=== PATIENT | male | born 1945 | race Caucasian/White ===

== ENCOUNTER 2022-01-27 13:33 | Inpatient (IN) ==
[2022-01-27] MEDS ORDERED: Isovue-370 500 ML BOTTLE IVP ONE (13:38)
[2022-01-27 13:54] LABS: Hematocrit 36.3 % (37.5-50.1); Hemoglobin 11.9 g/dL (12.9-16.9); Mean Corpuscular HGB Conc 32.8 g/dL (31.6-35.5); Mean Corpuscular Hemoglobin 29.2 pg (28.0-33.3); Mean Platelet Volume 9.8 fL (9.4-12.4); Platelet Count 276 K/mcL (140-400); Red Blood Count 4.08 M/mcL (4.19-5.50); Red Cell Distribution Width 15.5 % (11.5-14.5); White Blood Count 8.1 K/mcL (4.3-11.1)
[2022-01-27 14:02] LABS: INR 1.2; Prothrombin Time 13.4 Seconds (9.4-12.1)
[2022-01-27 14:13] LABS: BUN/Creatinine Ratio 19 (6-26); Blood Urea Nitrogen 30 mg/dL (8-23); Calcium 9.2 mg/dL (8.6-10.3); Carbon Dioxide 21 mEq/L (23-29); Chloride 101 mEq/L (98-107); Glucose 100 mg/dL (70-105); Osmolality,Calculated 290 (280-300); Potassium 4.4 mEq/L (3.5-5.1); Sodium 137 mEq/L (136-145); eGFR For African Americans 53 (> 60); eGFR For Non-African Americans 43 (> 60)
[2022-01-27 14:14] LABS: Troponin I < 0.03 ng/mL (< 0.04)
[2022-01-27] MEDS ORDERED: Aspirin 325 MG TABLET PO ONE (15:14)
[2022-01-27] MEDS ORDERED: 0.9 % Sodium Chloride 1,000 ML IVC ONE (15:14)
[2022-01-27 15:56] LABS: Creatine Kinase 121 Units/L (30-223)
[2022-01-27] MEDS ORDERED: Ondansetron 4 MG/2 ML VIAL IVP PRN (16:01)
[2022-01-27] MEDS ORDERED: Naloxone 0.4 MG/ML INJ IVP PRN (16:01)
[2022-01-27 16:02] LABS: Bilirubin,Urine Negative (Negative); Blood,Urine Negative (Negative); Clarity,Urine Clear (Clear); Color,Urine Light-Yellow (Yellow); Glucose,Urine (UA) Normal (Normal); Ketones,Urine Negative (Negative); Leukocyte Esterase,Urine Negative (Negative); Nitrite,Urine Negative (Negative); Protein,Urine Negative (Neg-Trace); Specific Gravity,Urine > 1.030 (1.010-1.025); Urobilinogen,Urine Normal (Normal)
[2022-01-27] MEDS ORDERED: Ringers Solution, Lactated 1,000 ML IVC SCH (16:30)
[2022-01-27] MEDS ORDERED: Perflutren Lipid Microsphere 1.3 ML in 0.9 % Sodium Chloride 8.7 ML IVP PRN (18:24)
[2022-01-27] MEDS ORDERED: Dextrose 4 GM Chewable Tablets PO PRN ×2 (20:55)
[2022-01-27] MEDS ORDERED: D5% in Water 1,000 ML IVC PRN (20:55)
[2022-01-27] MEDS ORDERED: *HR* Dextrose 50 % in Water (Syg) 50 ML SYRINGE IVP PRN (20:55)
[2022-01-27] MEDS: Budesonide/Formoterol 160/4.5 1 PUFF INH IH SCH (21:02)
[2022-01-27] MEDS: cilostazoL 100 MG TABLET PO SCH (21:23)
[2022-01-27] MEDS: Divalproex (12 HR) 500 MG TABLET PO SCH (21:23)
[2022-01-28 04:58] LABS: Basophils % 0.6 %; Eosinophils # 0.2 K/mcL (0.0-0.6); Eosinophils % 2.2 %; Hematocrit 31.3 % (37.5-50.1); Immature Granulocytes % 0.4 % (0-4); Lymphocytes # 1.9 K/mcL (0.6-4.6); Lymphocytes % 27.7 %; Mean Corpuscular HGB Conc 32.6 g/dL (31.6-35.5); Mean Corpuscular Hemoglobin 28.7 pg (28.0-33.3); Mean Corpuscular Volume 87.9 fL (83.0-100.0); Mean Platelet Volume 10.4 fL (9.4-12.4); Monocytes # 0.8 K/mcL (0.0-1.3); Neutrophils # 3.8 K/mcL (1.6-8.9); Platelet Count 219 K/mcL (140-400); Red Blood Count 3.56 M/mcL (4.19-5.50); Red Cell Distribution Width 15.2 % (11.5-14.5); Segmented Neutrophils % 57.1 %; White Blood Count 6.7 K/mcL (4.3-11.1)
[2022-01-28 05:00] LABS: Hemoglobin 10.2 g/dL (12.9-16.9)
[2022-01-28 05:05] LABS: INR 1.2; Prothrombin Time 13.3 Seconds (9.4-12.1)
[2022-01-28 05:19] LABS: Alanine Aminotransferase 4 Units/L (7-52); Albumin/Globulin Ratio 1.2 (1.1-2.2); Alkaline Phosphatase 50 Units/L (34-104); Aspartate Amino Transferase 11 Units/L (13-39); BUN/Creatinine Ratio 18 (6-26); Bilirubin,Total 0.3 mg/dL (0.3-1.0); Blood Urea Nitrogen 20 mg/dL (8-23); Carbon Dioxide 22 mEq/L (23-29); Chloride 107 mEq/L (98-107); Chol/HDL Ratio 3.2 (0-4.9); Cholesterol 94 mg/dL (< 200); Globulin 2.5 g/dL (2.4-3.5); Glucose 93 mg/dL (70-105); HDL Cholesterol 29 mg/dL (40-59); LDL Cholesterol,Calculated 49 mg/dL (< 100); Osmolality,Calculated 280 (280-300); Potassium 3.9 mEq/L (3.5-5.1); Sodium 134 mEq/L (136-145); Total Protein 5.5 g/dL (6.4-8.9); Triglycerides 80 mg/dL (< 150); eGFR For African Americans > 60 (> 60); eGFR For Non-African Americans > 60 (> 60)
[2022-01-28] MEDS: Tiotropium 10 INH DOSE IH SCH (08:09)
[2022-01-28] MEDS: Budesonide/Formoterol 160/4.5 1 PUFF INH IH SCH ×2 (08:09→19:41)
[2022-01-28] MEDS: cilostazoL 100 MG TABLET PO SCH ×2 (09:12→20:04)
[2022-01-28] MEDS: Divalproex (12 HR) 500 MG TABLET PO SCH ×2 (09:13→20:04)
[2022-01-28] MEDS: Aspirin 81 MG TAB.CHEW PO SCH (09:13)
[2022-01-28] MEDS: Metoprolol XL (24 HR) Succ 50 MG TAB.ER.24H PO SCH (09:13)
[2022-01-28 09:14] LABS: Estimated Average Glucose 105 mg/dl; Hemoglobin A1C 5.3 %
[2022-01-28] MEDS ORDERED: Isovue-370 500 ML BOTTLE IVP ONE (12:07)
[2022-01-29 03:16] LABS: Basophils % 0.7 %; Eosinophils # 0.2 K/mcL (0.0-0.6); Eosinophils % 3.4 %; Hematocrit 30.9 % (37.5-50.1); Hemoglobin 10.1 g/dL (12.9-16.9); Lymphocytes # 1.7 K/mcL (0.6-4.6); Lymphocytes % 29.2 %; Mean Corpuscular HGB Conc 32.7 g/dL (31.6-35.5); Mean Corpuscular Hemoglobin 28.6 pg (28.0-33.3); Mean Corpuscular Volume 87.5 fL (83.0-100.0); Mean Platelet Volume 10.2 fL (9.4-12.4); Monocytes # 0.6 K/mcL (0.0-1.3); Monocytes % 10.6 %; Neutrophils # 3.2 K/mcL (1.6-8.9); Platelet Count 225 K/mcL (140-400); Red Blood Count 3.53 M/mcL (4.19-5.50); Red Cell Distribution Width 15.2 % (11.5-14.5); Segmented Neutrophils % 55.1 %; White Blood Count 5.9 K/mcL (4.3-11.1)
[2022-01-29 03:36] LABS: BUN/Creatinine Ratio 14 (6-26); Blood Urea Nitrogen 14 mg/dL (8-23); Calcium 8.1 mg/dL (8.6-10.3); Carbon Dioxide 21 mEq/L (23-29); Chloride 108 mEq/L (98-107); Glucose 94 mg/dL (70-105); Magnesium 1.6 mg/dL (1.6-2.6); Osmolality,Calculated 282 (280-300); Phosphorous 2.2 mg/dL (2.7-4.5); Potassium 3.8 mEq/L (3.5-5.1); Sodium 136 mEq/L (136-145); eGFR For African Americans > 60 (> 60); eGFR For Non-African Americans > 60 (> 60)
[2022-01-29 07:14] VITALS: BP 137/75; PULSE 99; TEMP 98.2; O2SAT 96
[2022-01-29] MEDS: Tiotropium 10 INH DOSE IH SCH (07:42)
[2022-01-29] MEDS: Budesonide/Formoterol 160/4.5 1 PUFF INH IH SCH (07:42)
[2022-01-29] MEDS: Metoprolol XL (24 HR) Succ 50 MG TAB.ER.24H PO SCH (09:50)
[2022-01-29] MEDS: Divalproex (12 HR) 500 MG TABLET PO SCH (09:50)
[2022-01-29] MEDS: cilostazoL 100 MG TABLET PO SCH (09:50)
[2022-01-29] MEDS: Aspirin 81 MG TAB.CHEW PO SCH (09:50)
== END 2022-01-29 11:22 | disposition home health service (06) | DRG 65 ==
LOC: EMEROOARM 13:33 → 3BNU 13:33 → SUATTDRO 15:21 → 3BNU 16:10
PROVIDERS: ADMIT Student in an Organized Health Care Education/Training Program; ATTEND Internal Medicine

== ENCOUNTER 2022-02-21 08:03 | Inpatient (IN) ==
[2022-02-21] MEDS ORDERED: Isovue-370 500 ML BOTTLE IVP ONE (08:04)
[2022-02-21 08:34] LABS: Hematocrit 32.5 % (37.5-50.1); Hemoglobin 10.3 g/dL (12.9-16.9); Mean Corpuscular HGB Conc 31.7 g/dL (31.6-35.5); Mean Corpuscular Hemoglobin 28.5 pg (28.0-33.3); Mean Platelet Volume 9.8 fL (9.4-12.4); Platelet Count 208 K/mcL (140-400); Red Blood Count 3.61 M/mcL (4.19-5.50); White Blood Count 6.8 K/mcL (4.3-11.1)
[2022-02-21 08:41] LABS: INR 1.1; Prothrombin Time 12.4 Seconds (9.4-12.1)
[2022-02-21 08:49] LABS: BUN/Creatinine Ratio 13 (6-26); Blood Urea Nitrogen 42 mg/dL (8-23); Calcium 8.1 mg/dL (8.6-10.3); Carbon Dioxide 22 mEq/L (23-29); Chloride 105 mEq/L (98-107); Glucose 115 mg/dL (70-105); Osmolality,Calculated 291 (280-300); Potassium 4.3 mEq/L (3.5-5.1); Sodium 135 mEq/L (136-145); Troponin I < 0.03 ng/mL (< 0.04); eGFR For African Americans 23 (> 60); eGFR For Non-African Americans 19 (> 60)
[2022-02-21] MEDS ORDERED: Aspirin 325 MG TABLET PO ONE (09:01)
[2022-02-21] MEDS ORDERED: Naloxone 0.4 MG/ML INJ IVP PRN (09:37)
[2022-02-21] MEDS ORDERED: Ringers Solution, Lactated 1,000 ML IVC ONE (10:11)
[2022-02-21] MEDS ORDERED: Gabapentin 100 MG CAPSULE PO PRN (10:13)
[2022-02-21] MEDS: Baclofen 10 MG TABLET PO SCH ×2 (15:25→21:19)
[2022-02-21 20:53] LABS: Calcium 8.9 mg/dL (8.6-10.3); Potassium 4.1 mEq/L (3.5-5.1)
[2022-02-21] MEDS: Budesonide/Formoterol 80/4.5 1 PUFF INH IH SCH (21:06)
[2022-02-21] MEDS: Divalproex (12 HR) 500 MG TABLET PO SCH (21:19)
[2022-02-21] MEDS: Mirtazapine 15 MG TABLET PO SCH (21:19)
[2022-02-21] MEDS: cilostazoL 100 MG TABLET PO SCH (21:20)
[2022-02-21 22:56] LABS: Bilirubin,Urine Negative (Negative); Blood,Urine Trace (Negative); Clarity,Urine Turbid (Clear); Color,Urine Yellow (Yellow); Glucose,Urine (UA) Normal (Normal); Ketones,Urine Negative (Negative); Leukocyte Esterase,Urine Large (Negative); Mucus,Urine Few per lpf (None-Few); Nitrite,Urine Negative (Negative); Protein,Urine 30 mg/dL (Neg-Trace); RBC,Urine 15-30 per hpf (0-3); Specific Gravity,Urine > 1.030 (1.010-1.025); Urobilinogen,Urine Normal (Normal); WBC,Urine TNTC per hpf (0-3)
[2022-02-22] MEDS ORDERED: *HR* Metoprolol 5 MG/5 ML VIAL IVP ONE ×2 (02:23→09:33)
[2022-02-22 06:00] LABS: Basophils # 0.1 K/mcL (0.0-0.2); Basophils % 1.1 %; Eosinophils # 0.5 K/mcL (0.0-0.6); Eosinophils % 7.9 %; Hematocrit 35.7 % (37.5-50.1); Immature Granulocytes % 0.5 % (0-4); Lymphocytes # 1.8 K/mcL (0.6-4.6); Mean Corpuscular HGB Conc 33.9 g/dL (31.6-35.5); Mean Corpuscular Hemoglobin 29.7 pg (28.0-33.3); Mean Corpuscular Volume 87.7 fL (83.0-100.0); Monocytes # 0.6 K/mcL (0.0-1.3); Monocytes % 9.4 %; Neutrophils # 3.3 K/mcL (1.6-8.9); Platelet Count 218 K/mcL (140-400); Red Blood Count 4.07 M/mcL (4.19-5.50); Segmented Neutrophils % 52.1 %; White Blood Count 6.3 K/mcL (4.3-11.1)
[2022-02-22 06:11] LABS: Hemoglobin 12.1 g/dL (12.9-16.9)
[2022-02-22 06:53] LABS: Albumin 3.5 g/dL (3.5-5.7); Albumin/Globulin Ratio 1.2 (1.1-2.2); Bilirubin,Total 0.4 mg/dL (0.3-1.0); Calcium 9.1 mg/dL (8.6-10.3); Total Protein 6.5 g/dL (6.4-8.9)
[2022-02-22] MEDS: cefTRIAXone 1,000 MG in 0.9 % Sodium Chloride 10 ML IVP SCH (09:52)
[2022-02-22] MEDS: Ringers Solution, Lactated 1,000 ML IVC SCH ×2 (09:53→20:09)
[2022-02-22] MEDS: Metoprolol XL (24 HR) Succ 50 MG TAB.ER.24H PO SCH ×2 (10:02→12:10)
[2022-02-22] MEDS: Budesonide/Formoterol 80/4.5 1 PUFF INH IH SCH ×2 (11:31→19:51)
[2022-02-22] MEDS: Tiotropium 10 INH DOSE IH SCH (11:32)
[2022-02-22] MEDS: cilostazoL 100 MG TABLET PO SCH ×2 (12:08→20:11)
[2022-02-22] MEDS: Azithromycin 250 MG TABLET PO SCH (12:08)
[2022-02-22] MEDS: Aspirin Enteric Coated 81 MG Tablet PO SCH (12:08)
[2022-02-22] MEDS: Baclofen 10 MG TABLET PO SCH ×3 (12:10→20:11)
[2022-02-22] MEDS: Divalproex (12 HR) 500 MG TABLET PO SCH ×2 (12:10→20:11)
[2022-02-22] MEDS: Mirtazapine 15 MG TABLET PO SCH (20:11)
[2022-02-23] MEDS: Ringers Solution, Lactated 1,000 ML IVC SCH ×3 (05:29→22:50)
[2022-02-23 05:50] LABS: Basophils % 0.5 %; Eosinophils # 0.3 K/mcL (0.0-0.6); Eosinophils % 4.6 %; Hematocrit 33.2 % (37.5-50.1); Hemoglobin 10.8 g/dL (12.9-16.9); Immature Granulocytes % 0.5 % (0-4); Lymphocytes # 1.7 K/mcL (0.6-4.6); Lymphocytes % 28.4 %; Mean Corpuscular HGB Conc 32.5 g/dL (31.6-35.5); Mean Corpuscular Hemoglobin 28.6 pg (28.0-33.3); Mean Corpuscular Volume 88.1 fL (83.0-100.0); Mean Platelet Volume 10.4 fL (9.4-12.4); Monocytes # 0.6 K/mcL (0.0-1.3); Monocytes % 10.4 %; Neutrophils # 3.4 K/mcL (1.6-8.9); Platelet Count 206 K/mcL (140-400); Red Blood Count 3.77 M/mcL (4.19-5.50); Red Cell Distribution Width 14.9 % (11.5-14.5); Segmented Neutrophils % 55.6 %; White Blood Count 6.1 K/mcL (4.3-11.1)
[2022-02-23 06:13] LABS: Alanine Aminotransferase 4 Units/L (7-52); Albumin/Globulin Ratio 1.2 (1.1-2.2); Alkaline Phosphatase 72 Units/L (34-104); Aspartate Amino Transferase 11 Units/L (13-39); BUN/Creatinine Ratio 17 (6-26); Bilirubin,Total 0.3 mg/dL (0.3-1.0); Blood Urea Nitrogen 21 mg/dL (8-23); Calcium 8.4 mg/dL (8.6-10.3); Carbon Dioxide 25 mEq/L (23-29); Chloride 109 mEq/L (98-107); Globulin 2.5 g/dL (2.4-3.5); Glucose 129 mg/dL (70-105); Osmolality,Calculated 295 (280-300); Phosphorous 2.5 mg/dL (2.7-4.5); Potassium 3.9 mEq/L (3.5-5.1); Sodium 140 mEq/L (136-145); Total Protein 5.5 g/dL (6.4-8.9); eGFR For African Americans > 60 (> 60); eGFR For Non-African Americans 58 (> 60)
[2022-02-23] MEDS: Tiotropium 10 INH DOSE IH SCH (07:28)
[2022-02-23] MEDS: Budesonide/Formoterol 80/4.5 1 PUFF INH IH SCH ×2 (07:29→20:24)
[2022-02-23] MEDS: Aspirin Enteric Coated 81 MG Tablet PO SCH (09:25)
[2022-02-23] MEDS: Azithromycin 250 MG TABLET PO SCH (09:25)
[2022-02-23] MEDS: cilostazoL 100 MG TABLET PO SCH ×2 (09:25→19:48)
[2022-02-23] MEDS: Metoprolol XL (24 HR) Succ 50 MG TAB.ER.24H PO SCH (09:25)
[2022-02-23] MEDS: cefTRIAXone 1,000 MG in 0.9 % Sodium Chloride 10 ML IVP SCH (09:26)
[2022-02-23] MEDS: Baclofen 10 MG TABLET PO SCH ×3 (09:26→19:48)
[2022-02-23] MEDS: Divalproex (12 HR) 500 MG TABLET PO SCH ×2 (09:26→19:48)
[2022-02-23] MEDS: Mirtazapine 15 MG TABLET PO SCH (19:48)
[2022-02-24] MEDS: Budesonide/Formoterol 80/4.5 1 PUFF INH IH SCH ×2 (07:17→20:13)
[2022-02-24] MEDS: Tiotropium 10 INH DOSE IH SCH (07:17)
[2022-02-24] MEDS: Baclofen 10 MG TABLET PO SCH ×3 (08:30→21:25)
[2022-02-24] MEDS: cefTRIAXone 1,000 MG in 0.9 % Sodium Chloride 10 ML IVP SCH (08:30)
[2022-02-24] MEDS: Divalproex (12 HR) 500 MG TABLET PO SCH ×2 (08:30→21:25)
[2022-02-24] MEDS: Azithromycin 250 MG TABLET PO SCH (08:30)
[2022-02-24] MEDS: Metoprolol XL (24 HR) Succ 50 MG TAB.ER.24H PO SCH (08:31)
[2022-02-24] MEDS: cilostazoL 100 MG TABLET PO SCH ×2 (08:31→21:25)
[2022-02-24] MEDS: Aspirin Enteric Coated 81 MG Tablet PO SCH (08:31)
[2022-02-24] MEDS: Ringers Solution, Lactated 1,000 ML IVC SCH (12:44)
[2022-02-24] MEDS: Mirtazapine 15 MG TABLET PO SCH (21:25)
[2022-02-25] MEDS: Ringers Solution, Lactated 1,000 ML IVC SCH ×2 (01:06→10:12)
[2022-02-25 04:42] LABS: Hematocrit 35.5 % (37.5-50.1); Hemoglobin 11.9 g/dL (12.9-16.9); Mean Corpuscular HGB Conc 33.5 g/dL (31.6-35.5); Mean Corpuscular Volume 86.4 fL (83.0-100.0); Mean Platelet Volume 10.3 fL (9.4-12.4); Platelet Count 199 K/mcL (140-400); Red Blood Count 4.11 M/mcL (4.19-5.50); Red Cell Distribution Width 14.4 % (11.5-14.5); White Blood Count 6.9 K/mcL (4.3-11.1)
[2022-02-25 05:37] LABS: BUN/Creatinine Ratio 20 (6-26); Blood Urea Nitrogen 18 mg/dL (8-23); Calcium 8.6 mg/dL (8.6-10.3); Carbon Dioxide 22 mEq/L (23-29); Chloride 102 mEq/L (98-107); Glucose 82 mg/dL (70-105); Osmolality,Calculated 275 (280-300); Potassium 4.3 mEq/L (3.5-5.1); Sodium 132 mEq/L (136-145); eGFR For African Americans > 60 (> 60); eGFR For Non-African Americans > 60 (> 60)
[2022-02-25] MEDS: Budesonide/Formoterol 80/4.5 1 PUFF INH IH SCH ×2 (07:32→20:06)
[2022-02-25] MEDS: Tiotropium 10 INH DOSE IH SCH (07:32)
[2022-02-25] MEDS: cefTRIAXone 1,000 MG in 0.9 % Sodium Chloride 10 ML IVP SCH (09:51)
[2022-02-25] MEDS: cilostazoL 100 MG TABLET PO SCH ×2 (09:59→20:24)
[2022-02-25] MEDS: Baclofen 10 MG TABLET PO SCH ×3 (09:59→20:24)
[2022-02-25] MEDS: Aspirin Enteric Coated 81 MG Tablet PO SCH (09:59)
[2022-02-25] MEDS: Azithromycin 250 MG TABLET PO SCH (09:59)
[2022-02-25] MEDS: Divalproex (12 HR) 500 MG TABLET PO SCH ×2 (09:59→20:24)
[2022-02-25] MEDS: Metoprolol XL (24 HR) Succ 50 MG TAB.ER.24H PO SCH (09:59)
[2022-02-25] MEDS: Mirtazapine 15 MG TABLET PO SCH (20:25)
[2022-02-26] MEDS: Tiotropium 10 INH DOSE IH SCH (07:42)
[2022-02-26] MEDS: Budesonide/Formoterol 80/4.5 1 PUFF INH IH SCH ×2 (07:42→20:00)
[2022-02-26 08:23] LABS: Hematocrit 36.1 % (37.5-50.1); Hemoglobin 12.3 g/dL (12.9-16.9); Mean Corpuscular HGB Conc 34.1 g/dL (31.6-35.5); Mean Corpuscular Hemoglobin 29.1 pg (28.0-33.3); Mean Corpuscular Volume 85.3 fL (83.0-100.0); Mean Platelet Volume 9.6 fL (9.4-12.4); Platelet Count 226 K/mcL (140-400); Red Blood Count 4.23 M/mcL (4.19-5.50); Red Cell Distribution Width 14.5 % (11.5-14.5); White Blood Count 6.8 K/mcL (4.3-11.1)
[2022-02-26 08:44] LABS: BUN/Creatinine Ratio 18 (6-26); Blood Urea Nitrogen 21 mg/dL (8-23); Calcium 8.8 mg/dL (8.6-10.3); Carbon Dioxide 22 mEq/L (23-29); Chloride 101 mEq/L (98-107); Glucose 84 mg/dL (70-105); Osmolality,Calculated 274 (280-300); Potassium 4.3 mEq/L (3.5-5.1); Sodium 131 mEq/L (136-145); eGFR For African Americans > 60 (> 60); eGFR For Non-African Americans > 60 (> 60)
[2022-02-26] MEDS: cefTRIAXone 1,000 MG in 0.9 % Sodium Chloride 10 ML IVP SCH (09:15)
[2022-02-26] MEDS: cilostazoL 100 MG TABLET PO SCH ×2 (09:24→20:17)
[2022-02-26] MEDS: Azithromycin 250 MG TABLET PO SCH (09:25)
[2022-02-26] MEDS: Aspirin Enteric Coated 81 MG Tablet PO SCH (09:25)
[2022-02-26] MEDS: Divalproex (12 HR) 500 MG TABLET PO SCH ×2 (09:25→20:17)
[2022-02-26] MEDS: Baclofen 10 MG TABLET PO SCH ×3 (09:25→20:17)
[2022-02-26] MEDS: Metoprolol XL (24 HR) Succ 50 MG TAB.ER.24H PO SCH (09:25)
[2022-02-26] MEDS: Mirtazapine 15 MG TABLET PO SCH (20:16)
[2022-02-27 05:26] LABS: Hematocrit 35.5 % (37.5-50.1); Mean Corpuscular HGB Conc 33.8 g/dL (31.6-35.5); Mean Corpuscular Hemoglobin 28.9 pg (28.0-33.3); Mean Corpuscular Volume 85.5 fL (83.0-100.0); Mean Platelet Volume 9.8 fL (9.4-12.4); Platelet Count 243 K/mcL (140-400); Red Blood Count 4.15 M/mcL (4.19-5.50); Red Cell Distribution Width 14.5 % (11.5-14.5)
[2022-02-27 05:42] LABS: BUN/Creatinine Ratio 26 (6-26); Blood Urea Nitrogen 28 mg/dL (8-23); Calcium 8.9 mg/dL (8.6-10.3); Carbon Dioxide 24 mEq/L (23-29); Chloride 100 mEq/L (98-107); Glucose 90 mg/dL (70-105); Osmolality,Calculated 275 (280-300); Potassium 4.4 mEq/L (3.5-5.1); Sodium 130 mEq/L (136-145); eGFR For African Americans > 60 (> 60); eGFR For Non-African Americans > 60 (> 60)
[2022-02-27] MEDS: Tiotropium 10 INH DOSE IH SCH (07:29)
[2022-02-27] MEDS: Budesonide/Formoterol 80/4.5 1 PUFF INH IH SCH (07:29)
[2022-02-27] MEDS ORDERED: Vancomycin 1,000 MG VIAL ONE (08:19)
[2022-02-27] MEDS ORDERED: Famotidine 20 MG/2 ML VIAL IVP ONE (08:22)
[2022-02-27] MEDS ORDERED: Acetaminophen IV 1,000 MG/100 ML BAG IVPB ONE (08:22)
[2022-02-27] MEDS ORDERED: CeFAZolin Syr 2,000MG/20 ML 2,000 MG/20 ML SYRINGE IVPB ONE (08:23)
[2022-02-27] MEDS ORDERED: Albuterol 2.5 MG/3 ML NEBULIZER IH ONE (08:29)
[2022-02-27] MEDS ORDERED: Ringers Solution, Lactated 1,000 ML IVC SCH (08:30)
[2022-02-27] MEDS ORDERED: Azithromycin 250 MG TABLET PO SCH (09:45)
[2022-02-27] MEDS ORDERED: cefTRIAXone 1,000 MG in 0.9 % Sodium Chloride 10 ML IVP SCH (10:00)
[2022-02-27] MEDS ORDERED: Ondansetron 4 MG/2 ML VIAL IVP PRN ×2 (12:02→13:07)
[2022-02-27] MEDS ORDERED: Naloxone 0.4 MG/ML INJ IVP PRN ×2 (12:02→13:07)
[2022-02-27] MEDS ORDERED: *HR* FentaNYL (PF) 100 MCG/2 ML VIAL IVP PRN (12:02)
[2022-02-27] MEDS ORDERED: Nitroglycerin 0.4 MG TAB.SUBL SL PRN (12:02)
[2022-02-27] MEDS ORDERED: Albuterol 2.5 MG/3 ML NEBULIZER IH PRN (12:02)
[2022-02-27] MEDS ORDERED: Acetaminophen 325 MG TABLET PO PRN (13:07)
[2022-02-27] MEDS ORDERED: *HR* OxyCODONE Immed Rel 5 MG TABLET PO PRN (13:07)
[2022-02-27] MEDS ORDERED: Polymyxin B Sulfate 500,000 UNIT, Sodium Chloride IRRigation 1,000 ML IR ONE (13:35)
[2022-02-27] MEDS ORDERED: Baclofen 10 MG TABLET PO PRN (14:19)
[2022-02-27] MEDS: Ringers Solution, Lactated 1,000 ML IVC SCH ×2 (14:20→23:15)
[2022-02-27] MEDS: Divalproex (12 HR) 500 MG TABLET PO SCH ×2 (15:48→20:24)
[2022-02-27] MEDS: CeFAZolin 2 GM/120 ML BAG IVPB SCH ×2 (15:51→23:24)
[2022-02-27] MEDS: Metoprolol XL (24 HR) Succ 50 MG TAB.ER.24H PO SCH (16:06)
[2022-02-27] MEDS: Mirtazapine 15 MG TABLET PO SCH (20:23)
[2022-02-28 06:48] LABS: Basophils % 0.2 %; Hematocrit 33.6 % (37.5-50.1); Hemoglobin 11.6 g/dL (12.9-16.9); Immature Granulocytes % 0.6 % (0-4); Lymphocytes # 1.4 K/mcL (0.6-4.6); Lymphocytes % 15.8 %; Mean Corpuscular HGB Conc 34.5 g/dL (31.6-35.5); Mean Corpuscular Hemoglobin 29.3 pg (28.0-33.3); Mean Corpuscular Volume 84.8 fL (83.0-100.0); Monocytes # 1.3 K/mcL (0.0-1.3); Neutrophils # 5.8 K/mcL (1.6-8.9); Platelet Count 235 K/mcL (140-400); Red Blood Count 3.96 M/mcL (4.19-5.50); Red Cell Distribution Width 14.5 % (11.5-14.5); Segmented Neutrophils % 68.4 %; White Blood Count 8.5 K/mcL (4.3-11.1)
[2022-02-28 07:24] LABS: BUN/Creatinine Ratio 21 (6-26); Blood Urea Nitrogen 21 mg/dL (8-23); Calcium 8.6 mg/dL (8.6-10.3); Carbon Dioxide 24 mEq/L (23-29); Chloride 99 mEq/L (98-107); Glucose 92 mg/dL (70-105); Magnesium 1.6 mg/dL (1.6-2.6); Osmolality,Calculated 275 (280-300); Potassium 4.3 mEq/L (3.5-5.1); Sodium 131 mEq/L (136-145); eGFR For African Americans > 60 (> 60); eGFR For Non-African Americans > 60 (> 60)
[2022-02-28] MEDS: lisinopriL 20 MG TABLET PO SCH (08:43)
[2022-02-28] MEDS: Metoprolol XL (24 HR) Succ 50 MG TAB.ER.24H PO SCH (08:44)
[2022-02-28] MEDS: Thiamine (B-1) 100 MG TABLET PO SCH (08:44)
[2022-02-28] MEDS: Divalproex (12 HR) 500 MG TABLET PO SCH ×2 (08:44→20:42)
[2022-02-28] MEDS ORDERED: Furosemide 20 MG TABLET PO SCH (09:00)
[2022-02-28] MEDS: Tiotropium 10 INH DOSE IH SCH (10:53)
[2022-02-28] MEDS ORDERED: E-Z-HD (BARIUM SULF) SUSPENSION PO ONE (13:02)
[2022-02-28] MEDS ORDERED: E-Z-PAQUE (BARIUM SULF) SUSP 1 BOTTLE PO ONE (13:02)
[2022-02-28] MEDS ORDERED: D5% in Water 1,000 ML IVC PRN (13:16)
[2022-02-28] MEDS ORDERED: Dextrose 4 GM Chewable Tablets PO PRN ×2 (13:16)
[2022-02-28] MEDS ORDERED: *HR* Dextrose 50 % in Water (Syg) 50 ML SYRINGE IVP PRN (13:16)
[2022-02-28] MEDS: MethylPREDNISolone 40 MG/ML VIAL IVP SCH ×2 (14:36→20:41)
[2022-02-28] MEDS ORDERED: D5% in Lactated Ringers 1,000 ML IVC SCH (15:00)
[2022-02-28] MEDS: Insulin LISPRO 300 UNITS/3 ML VIAL SUBQ SCH (18:41)
[2022-02-28] MEDS: *HR* Heparin 5,000 UNIT/ML VIAL SQ SCH (18:44)
[2022-02-28] MEDS: Mirtazapine 15 MG TABLET PO SCH (20:42)
[2022-02-28] MEDS: Valproic Acid INJ 500 MG in 0.9 % Sodium Chloride 100 ML IVPB SCH (23:44)
[2022-03-01] MEDS: Insulin LISPRO 300 UNITS/3 ML VIAL SUBQ SCH ×4 (00:13→19:14)
[2022-03-01 01:03] LABS: Hematocrit 36.2 % (37.5-50.1); Hemoglobin 12.3 g/dL (12.9-16.9)
[2022-03-01 01:20] LABS: Blood Urea Nitrogen 22 mg/dL (8-23); Calcium 8.8 mg/dL (8.6-10.3); Carbon Dioxide 25 mEq/L (23-29); Chloride 99 mEq/L (98-107); Glucose 119 mg/dL (70-105); Magnesium 1.8 mg/dL (1.6-2.6); Osmolality,Calculated 278 (280-300); Phosphorous 3.3 mg/dL (2.7-4.5); Potassium 3.9 mEq/L (3.5-5.1); Sodium 132 mEq/L (136-145)
[2022-03-01 01:57] LABS: BUN/Creatinine Ratio 23 (6-26); eGFR For African Americans > 60 (> 60); eGFR For Non-African Americans > 60 (> 60)
[2022-03-01] MEDS: *HR* Heparin 5,000 UNIT/ML VIAL SQ SCH ×2 (05:05→16:51)
[2022-03-01] MEDS: MethylPREDNISolone 40 MG/ML VIAL IVP SCH ×3 (05:06→20:12)
[2022-03-01] MEDS ORDERED: Aspirin Enteric Coated 81 MG Tablet PO SCH (09:00)
[2022-03-01] MEDS ORDERED: Furosemide 20 MG/2 ML VIAL IVP ONE (09:52)
[2022-03-01] MEDS: Metoprolol XL (24 HR) Succ 50 MG TAB.ER.24H PO SCH (09:55)
[2022-03-01] MEDS: lisinopriL 20 MG TABLET PO SCH (09:55)
[2022-03-01] MEDS: Thiamine (B-1) 100 MG TABLET PO SCH (09:55)
[2022-03-01] MEDS: Valproic Acid INJ 500 MG in 0.9 % Sodium Chloride 100 ML IVPB SCH ×2 (09:58→20:12)
[2022-03-01] MEDS ORDERED: Furosemide 20 MG/2 ML VIAL IVP SCH (10:00)
[2022-03-01] MEDS: Tiotropium 10 INH DOSE IH SCH (10:23)
[2022-03-01] MEDS ORDERED: *HR* Labetalol 20 MG/4 ML SYRINGE IVP PRN (12:05)
[2022-03-01] MEDS ORDERED: D5% in Lactated Ringers 1,000 ML IVC SCH (12:15)
[2022-03-01] MEDS: Mirtazapine 15 MG TABLET PO SCH (20:12)
[2022-03-01] MEDS ORDERED: Divalproex Sodium 125 MG Sprinkle Capsule (DR) PO SCH (21:45)
[2022-03-01] MEDS: Megestrol Acetate 400 MG/10 ML UDC PO SCH (22:23)
[2022-03-02] MEDS: Insulin LISPRO 300 UNITS/3 ML VIAL SUBQ SCH ×4 (00:16→18:37)
[2022-03-02] MEDS: Docusate Oral Soln 100 MG/10 ML UDC PO SCH ×3 (00:17→21:35)
[2022-03-02 05:09] LABS: BUN/Creatinine Ratio 26 (6-26); Blood Urea Nitrogen 23 mg/dL (8-23); Calcium 8.5 mg/dL (8.6-10.3); Carbon Dioxide 25 mEq/L (23-29); Chloride 99 mEq/L (98-107); Glucose 170 mg/dL (70-105); Magnesium 1.8 mg/dL (1.6-2.6); Osmolality,Calculated 284 (280-300); Phosphorous 2.4 mg/dL (2.7-4.5); Potassium 3.6 mEq/L (3.5-5.1); Sodium 133 mEq/L (136-145); eGFR For African Americans > 60 (> 60); eGFR For Non-African Americans > 60 (> 60)
[2022-03-02] MEDS: *HR* Heparin 5,000 UNIT/ML VIAL SQ SCH ×2 (05:49→18:08)
[2022-03-02] MEDS: MethylPREDNISolone 40 MG/ML VIAL IVP SCH ×2 (05:51→18:08)
[2022-03-02] MEDS: Tiotropium 10 INH DOSE IH SCH (07:51)
[2022-03-02] MEDS: Valproic Acid INJ 500 MG in 0.9 % Sodium Chloride 100 ML IVPB SCH ×2 (09:47→21:04)
[2022-03-02] MEDS: Metoprolol XL (24 HR) Succ 50 MG TAB.ER.24H PO SCH (09:52)
[2022-03-02] MEDS: Megestrol Acetate 400 MG/10 ML UDC PO SCH ×2 (10:01→21:35)
[2022-03-02] MEDS: lisinopriL 20 MG TABLET PO SCH (10:04)
[2022-03-02] MEDS: Aspirin 81 MG TAB.CHEW PO SCH (10:04)
[2022-03-02] MEDS: Thiamine (B-1) 100 MG TABLET PO SCH (10:04)
[2022-03-02] MEDS: Pantoprazole 40 MG VIAL IVP SCH (10:04)
[2022-03-02] MEDS ORDERED: MethylPREDNISolone 40 MG/ML VIAL IVP SCH (12:00)
[2022-03-02] MEDS: Mirtazapine 15 MG TABLET PO SCH (21:35)
[2022-03-03] MEDS: Megestrol Acetate 400 MG/10 ML UDC PO SCH ×3 (01:03→20:34)
[2022-03-03] MEDS: Docusate Oral Soln 100 MG/10 ML UDC PO SCH ×3 (01:03→20:33)
[2022-03-03] MEDS: Insulin LISPRO 300 UNITS/3 ML VIAL SUBQ SCH ×4 (01:04→20:33)
[2022-03-03] MEDS: Mirtazapine 15 MG TABLET PO SCH ×2 (01:04→20:34)
[2022-03-03] MEDS: MethylPREDNISolone 40 MG/ML VIAL IVP SCH ×2 (06:27→18:42)
[2022-03-03] MEDS: *HR* Heparin 5,000 UNIT/ML VIAL SQ SCH ×2 (06:27→18:43)
[2022-03-03] MEDS: Tiotropium 10 INH DOSE IH SCH (10:27)
[2022-03-03] MEDS: Valproic Acid INJ 500 MG in 0.9 % Sodium Chloride 100 ML IVPB SCH ×2 (10:37→20:45)
[2022-03-03] MEDS: Aspirin 81 MG TAB.CHEW PO SCH (11:10)
[2022-03-03] MEDS: Metoprolol XL (24 HR) Succ 50 MG TAB.ER.24H PO SCH (11:13)
[2022-03-03] MEDS: lisinopriL 20 MG TABLET PO SCH (11:14)
[2022-03-03] MEDS: Thiamine (B-1) 100 MG TABLET PO SCH (11:14)
[2022-03-03] MEDS: Pantoprazole 40 MG VIAL IVP SCH (11:20)
[2022-03-03] MEDS ORDERED: polyethylene glycoL 3350 17 GM POWD.PACK PO PRN (12:24)
[2022-03-03] MEDS ORDERED: D5% in Lactated Ringers 1,000 ML IVC SCH (12:30)
[2022-03-03] MEDS ORDERED: Ondansetron 4 MG/2 ML VIAL IVP PRN (15:12)
[2022-03-04] MEDS: Insulin LISPRO 300 UNITS/3 ML VIAL SUBQ SCH ×4 (00:07→18:40)
[2022-03-04 04:47] LABS: Basophils % 0.1 %; Hematocrit 33.7 % (37.5-50.1); Immature Granulocytes % 1.5 % (0-4); Lymphocytes # 1.6 K/mcL (0.6-4.6); Mean Corpuscular HGB Conc 32.6 g/dL (31.6-35.5); Mean Corpuscular Hemoglobin 28.5 pg (28.0-33.3); Mean Corpuscular Volume 87.3 fL (83.0-100.0); Mean Platelet Volume 9.7 fL (9.4-12.4); Monocytes # 0.7 K/mcL (0.0-1.3); Monocytes % 8.4 %; Neutrophils # 6.2 K/mcL (1.6-8.9); Platelet Count 278 K/mcL (140-400); Red Blood Count 3.86 M/mcL (4.19-5.50); Red Cell Distribution Width 14.6 % (11.5-14.5); White Blood Count 8.6 K/mcL (4.3-11.1)
[2022-03-04 05:06] LABS: BUN/Creatinine Ratio 28 (6-26); Blood Urea Nitrogen 22 mg/dL (8-23); Calcium 8.3 mg/dL (8.6-10.3); Carbon Dioxide 26 mEq/L (23-29); Chloride 102 mEq/L (98-107); Glucose 98 mg/dL (70-105); Magnesium 1.9 mg/dL (1.6-2.6); Osmolality,Calculated 279 (280-300); Phosphorous 2.8 mg/dL (2.7-4.5); Potassium 4.2 mEq/L (3.5-5.1); Sodium 133 mEq/L (136-145); eGFR For African Americans > 60 (> 60); eGFR For Non-African Americans > 60 (> 60)
[2022-03-04] MEDS: *HR* Heparin 5,000 UNIT/ML VIAL SQ SCH ×2 (06:31→18:40)
[2022-03-04] MEDS: MethylPREDNISolone 40 MG/ML VIAL IVP SCH ×2 (06:31→18:40)
[2022-03-04] MEDS: Tiotropium 10 INH DOSE IH SCH (08:56)
[2022-03-04] MEDS: Megestrol Acetate 400 MG/10 ML UDC PO SCH (09:45)
[2022-03-04] MEDS: Docusate Oral Soln 100 MG/10 ML UDC PO SCH (09:45)
[2022-03-04] MEDS: Aspirin 81 MG TAB.CHEW PO SCH (09:45)
[2022-03-04] MEDS: Thiamine (B-1) 100 MG TABLET PO SCH (09:46)
[2022-03-04] MEDS: lisinopriL 20 MG TABLET PO SCH (09:46)
[2022-03-04] MEDS: Metoprolol XL (24 HR) Succ 50 MG TAB.ER.24H PO SCH (09:46)
[2022-03-04] MEDS: Pantoprazole 40 MG VIAL IVP SCH (09:46)
[2022-03-04] MEDS: Valproic Acid INJ 500 MG in 0.9 % Sodium Chloride 100 ML IVPB SCH (12:00)
[2022-03-04] MEDS ORDERED: E-Z-PAQUE (BARIUM SULF) SUSP 1 BOTTLE PO ONE ×2 (14:47→16:41)
[2022-03-04] MEDS ORDERED: E-Z-HD (BARIUM SULF) SUSPENSION PO ONE ×2 (14:47→16:41)
[2022-03-04 16:11] VITALS: BP 164/81; PULSE 95; TEMP 98; O2SAT 97
== END 2022-03-04 18:00 | disposition home health service (06) | DRG 471 ==
LOC: EMEROOARM 08:03 → 3BNU 08:03 → SUATTDRO 09:29 → 3BNU 09:50 → 4WAOSI 02-27 12:44
PROVIDERS: ADMIT Internal Medicine; ATTEND Internal Medicine

== ENCOUNTER 2022-05-06 12:20 | Inpatient (IN) ==
[2022-05-06 12:48] LABS: Basophils # 0.1 K/mcL (0.0-0.2); Basophils % 0.8 %; Eosinophils # 0.5 K/mcL (0.0-0.6); Eosinophils % 6.3 %; Hematocrit 37.8 % (37.5-50.1); Hemoglobin 12.6 g/dL (12.9-16.9); Immature Granulocytes % 0.8 % (0-4); Lymphocytes # 1.9 K/mcL (0.6-4.6); Lymphocytes % 23.5 %; Mean Corpuscular HGB Conc 33.3 g/dL (31.6-35.5); Mean Corpuscular Hemoglobin 28.4 pg (28.0-33.3); Mean Corpuscular Volume 85.1 fL (83.0-100.0); Mean Platelet Volume 9.9 fL (9.4-12.4); Monocytes # 0.8 K/mcL (0.0-1.3); Monocytes % 10.5 %; Neutrophils # 4.6 K/mcL (1.6-8.9); Platelet Count 369 K/mcL (140-400); Red Blood Count 4.44 M/mcL (4.19-5.50); Red Cell Distribution Width 14.5 % (11.5-14.5); Segmented Neutrophils % 58.1 %
[2022-05-06 13:55] LABS: Bilirubin,Urine Negative (Negative); Blood,Urine Negative (Negative); Clarity,Urine Clear (Clear); Color,Urine Yellow (Yellow); Glucose,Urine (UA) Normal (Normal); Ketones,Urine 10 mg/dL (Negative); Leukocyte Esterase,Urine Negative (Negative); Nitrite,Urine Negative (Negative); PH,Urine 6.5 pH Units (5.0-8.0); Protein,Urine Trace mg/dL (Neg-Trace); Specific Gravity,Urine 1.023 (1.010-1.025)
[2022-05-06 14:39] LABS: BUN/Creatinine Ratio 13 (6-26); Blood Urea Nitrogen 13 mg/dL (8-23); Calcium 8.7 mg/dL (8.6-10.3); Carbon Dioxide 22 mEq/L (23-29); Chloride 99 mEq/L (98-107); Glucose 98 mg/dL (70-105); Osmolality,Calculated 266 (280-300); Potassium 4.4 mEq/L (3.5-5.1); Sodium 128 mEq/L (136-145); eGFR For African Americans > 60 (> 60); eGFR For Non-African Americans > 60 (> 60)
[2022-05-06] MEDS ORDERED: Gadolinium Contrast Agent (WT Based) IV PRN ×2 (16:18→17:06)
[2022-05-06] MEDS ORDERED: Ondansetron 4 MG/2 ML VIAL IVP PRN (20:35)
[2022-05-06] MEDS ORDERED: Acetaminophen 325 MG TABLET PO PRN (20:35)
[2022-05-06] MEDS ORDERED: Naloxone 0.4 MG/ML INJ IVP PRN (20:35)
[2022-05-06] MEDS ORDERED: 0.9 % Sodium Chloride 1,000 ML IVC SCH (20:45)
[2022-05-07] MEDS ORDERED: Gabapentin 100 MG CAPSULE PO PRN (00:44)
[2022-05-07 07:16] LABS: Hematocrit 37.2 % (37.5-50.1); Mean Corpuscular HGB Conc 32.3 g/dL (31.6-35.5); Mean Corpuscular Volume 86.7 fL (83.0-100.0); Platelet Count 271 K/mcL (140-400); Red Blood Count 4.29 M/mcL (4.19-5.50); Red Cell Distribution Width 14.6 % (11.5-14.5); White Blood Count 6.1 K/mcL (4.3-11.1)
[2022-05-07 08:38] LABS: BUN/Creatinine Ratio 13 (6-26); Blood Urea Nitrogen 9 mg/dL (8-23); Calcium 8.2 mg/dL (8.6-10.3); Carbon Dioxide 17 mEq/L (23-29); Chloride 101 mEq/L (98-107); Glucose 79 mg/dL (70-105); Osmolality,Calculated 266 (280-300); Potassium 4.1 mEq/L (3.5-5.1); Sodium 129 mEq/L (136-145); eGFR For African Americans > 60 (> 60); eGFR For Non-African Americans > 60 (> 60)
[2022-05-07] MEDS: Budesonide/Formoterol 80/4.5 1 PUFF INH IH SCH ×2 (10:36→22:03)
[2022-05-07] MEDS: Tiotropium 10 INH DOSE IH SCH (10:36)
[2022-05-07] MEDS: lisinopriL 20 MG TABLET PO SCH (10:44)
[2022-05-07] MEDS: Metoprolol XL (24 HR) Succ 50 MG TAB.ER.24H PO SCH (10:44)
[2022-05-07] MEDS: Divalproex (12 HR) 500 MG TABLET PO SCH ×2 (10:44→19:58)
[2022-05-07] MEDS ORDERED: *HR* OxyCODONE Immed Rel 5 MG TABLET PO PRN (11:29)
[2022-05-07] MEDS ORDERED: tiZANidine 4 MG TABLET PO PRN (11:29)
[2022-05-07] MEDS ORDERED: Mirtazapine 15 MG TABLET PO SCH (21:00)
[2022-05-08 02:40] LABS: Basophils # 0.1 K/mcL (0.0-0.2); Eosinophils # 0.3 K/mcL (0.0-0.6); Eosinophils % 4.7 %; Hematocrit 36.8 % (37.5-50.1); Hemoglobin 12.2 g/dL (12.9-16.9); Immature Granulocytes % 0.4 % (0-4); Lymphocytes % 28.9 %; Mean Corpuscular HGB Conc 33.2 g/dL (31.6-35.5); Mean Corpuscular Volume 84.4 fL (83.0-100.0); Mean Platelet Volume 9.6 fL (9.4-12.4); Monocytes # 0.7 K/mcL (0.0-1.3); Monocytes % 9.9 %; Neutrophils # 3.8 K/mcL (1.6-8.9); Platelet Count 305 K/mcL (140-400); Red Blood Count 4.36 M/mcL (4.19-5.50); Red Cell Distribution Width 14.5 % (11.5-14.5); Segmented Neutrophils % 55.1 %
[2022-05-08 02:41] LABS: BUN/Creatinine Ratio 16 (6-26); Blood Urea Nitrogen 13 mg/dL (8-23); Calcium 8.6 mg/dL (8.6-10.3); Carbon Dioxide 21 mEq/L (23-29); Chloride 100 mEq/L (98-107); Glucose 88 mg/dL (70-105); Magnesium 1.5 mg/dL (1.6-2.6); Osmolality,Calculated 268 (280-300); Potassium 4.1 mEq/L (3.5-5.1); Sodium 129 mEq/L (136-145); eGFR For African Americans > 60 (> 60); eGFR For Non-African Americans > 60 (> 60)
[2022-05-08 06:50] VITALS: TEMP 97.6
[2022-05-08] MEDS ORDERED: Thiamine (B-1) 100 MG TABLET PO SCH (09:00)
[2022-05-08] MEDS: Budesonide/Formoterol 80/4.5 1 PUFF INH IH SCH (09:36)
[2022-05-08] MEDS: Tiotropium 10 INH DOSE IH SCH (09:36)
[2022-05-08 09:40] VITALS: O2SAT 98
[2022-05-08] MEDS: Metoprolol XL (24 HR) Succ 50 MG TAB.ER.24H PO SCH (09:54)
[2022-05-08] MEDS: lisinopriL 20 MG TABLET PO SCH (09:55)
[2022-05-08] MEDS: Divalproex (12 HR) 500 MG TABLET PO SCH (09:59)
[2022-05-08 10:11] VITALS: BP 151/87; PULSE 93
== END 2022-05-08 19:24 | DRG 641 ==
LOC: EMEROOARM 12:20 → 4WAOSI 12:20 → SUATTDRO 20:54 → 4WAOSI 22:07 → 3ANU 05-08 14:56
PROVIDERS: ADMIT Student in an Organized Health Care Education/Training Program; ATTEND Internal Medicine

== ENCOUNTER 2022-05-26 20:13 | Inpatient (IN) ==
[2022-05-26] MEDS ORDERED: 0.9 % Sodium Chloride 1,000 ML IVC ONE (20:37)
[2022-05-26] MEDS ORDERED: cefTRIAXone 1,000 MG in 0.9 % Sodium Chloride 10 ML IVP ONE ×2 (20:37→22:31)
[2022-05-26] MEDS ORDERED: methylPREDNISolone 125 MG/2 ML VIAL IVP ONE (20:37)
[2022-05-26] MEDS ORDERED: Ipratropium/Albuterol Neb 3 ML IH ONE (20:37)
[2022-05-26] MEDS ORDERED: Iopamidol - 370 500 ML MLS IVP ONE (20:48)
[2022-05-26 20:57] LABS: VBG HCO3 23 mEq/L (21-27); VBG PCO2 35 mmHg (41-51); VBG PH 7.43 pH Units (7.32-7.42); VBG PO2 116 mmHg (25-50)
[2022-05-26 20:58] LABS: Hematocrit 37.8 % (37.5-50.1); Hemoglobin 12.5 g/dL (12.9-16.9); Immature Granulocytes % 2.4 % (0-4); Lymphocytes % 14.9 %; Mean Corpuscular HGB Conc 33.1 g/dL (31.6-35.5); Mean Corpuscular Hemoglobin 28.3 pg (28.0-33.3); Mean Corpuscular Volume 85.7 fL (83.0-100.0); Mean Platelet Volume 9.9 fL (9.4-12.4); Monocytes % 9.2 %; Platelet Count 412 K/mcL (140-400); Red Blood Count 4.41 M/mcL (4.19-5.50); Red Cell Distribution Width 15.2 % (11.5-14.5); Segmented Neutrophils % 70.8 %; White Blood Count 21.7 K/mcL (4.3-11.1)
[2022-05-26 20:59] LABS: Basophils # 0.1 K/mcL (0.0-0.2); Basophils % 0.6 %; Eosinophils # 0.5 K/mcL (0.0-0.6); Eosinophils % 2.1 %; Lymphocytes # 3.2 K/mcL (0.6-4.6); Neutrophils # 15.4 K/mcL (1.6-8.9)
[2022-05-26 21:15] LABS: BUN/Creatinine Ratio 24 (6-26); Blood Urea Nitrogen 20 mg/dL (8-23); Calcium 8.9 mg/dL (8.6-10.3); Carbon Dioxide 22 mEq/L (23-29); Chloride 103 mEq/L (98-107); Glucose 120 mg/dL (70-105); Osmolality,Calculated 284 (280-300); Potassium 4.1 mEq/L (3.5-5.1); Sodium 135 mEq/L (136-145); eGFR For African Americans > 60 (> 60); eGFR For Non-African Americans > 60 (> 60)
[2022-05-26 21:16] LABS: Troponin I 0.03 ng/mL (< 0.04)
[2022-05-26 21:50] LABS: Influenza A PCR Negative (Negative); Influenza B PCR Negative (Negative); Resp. Syncytial Virus PCR Negative (Negative)
[2022-05-26 21:51] LABS: SARS-CoV-2 by PCR (In House) Negative (Negative)
[2022-05-26] MEDS ORDERED: Azithromycin 500 MG in 0.9 % Sodium Chloride 250 ML IVPB ONE (22:31)
[2022-05-26] MEDS ORDERED: 0.9 % Sodium Chloride 1,000 ML IV ONE (22:32)
[2022-05-27] MEDS ORDERED: *HR* HYDROcodone/Acet 5/325 mg TABLET PO PRN (00:12)
[2022-05-27] MEDS ORDERED: Ondansetron 4 MG/2 ML VIAL IVP PRN (00:12)
[2022-05-27] MEDS ORDERED: Naloxone 0.4 MG/ML INJ IVP PRN (00:12)
[2022-05-27] MEDS ORDERED: Melatonin 3 MG TABLET PO PRN (00:12)
[2022-05-27] MEDS ORDERED: Acetaminophen 325 MG TABLET PO PRN (00:12)
[2022-05-27] MEDS ORDERED: D5% in Water 1,000 ML IVC PRN (01:13)
[2022-05-27] MEDS ORDERED: Dextrose Gel 15 GM/37.5 ML TUBE PO PRN ×2 (01:13)
[2022-05-27] MEDS ORDERED: *HR* Dextrose 50 % in Water (Syg) 50 ML SYRINGE IVP PRN (01:13)
[2022-05-27 01:23] LABS: Hematocrit 33.4 % (37.5-50.1); Mean Corpuscular HGB Conc 32.3 g/dL (31.6-35.5); Mean Corpuscular Hemoglobin 28.1 pg (28.0-33.3); Mean Platelet Volume 9.8 fL (9.4-12.4); Platelet Count 307 K/mcL (140-400); Red Blood Count 3.84 M/mcL (4.19-5.50); Red Cell Distribution Width 15.4 % (11.5-14.5); White Blood Count 17.7 K/mcL (4.3-11.1)
[2022-05-27 01:25] LABS: Hemoglobin 10.8 g/dL (12.9-16.9)
[2022-05-27 01:31] LABS: INR 1.3; Prothrombin Time 14.1 Seconds (9.4-12.1)
[2022-05-27 01:33] LABS: Activated Partial Thrombo Time 26.1 Seconds (26.0-36.0)
[2022-05-27] MEDS: Ringers Solution, Lactated 1,000 ML IVC SCH ×2 (01:36→11:11)
[2022-05-27 01:41] LABS: Alanine Aminotransferase 13 Units/L (7-52); Albumin 2.8 g/dL (3.5-5.7); Albumin/Globulin Ratio 0.9 (1.1-2.2); Alkaline Phosphatase 71 Units/L (34-104); Aspartate Amino Transferase 20 Units/L (13-39); BUN/Creatinine Ratio 22 (6-26); Bilirubin,Total 0.2 mg/dL (0.3-1.0); Blood Urea Nitrogen 17 mg/dL (8-23); Calcium 7.9 mg/dL (8.6-10.3); Carbon Dioxide 21 mEq/L (23-29); Chloride 107 mEq/L (98-107); Globulin 3.1 g/dL (2.4-3.5); Glucose 159 mg/dL (70-105); Magnesium 1.4 mg/dL (1.6-2.6); Osmolality,Calculated 285 (280-300); Phosphorous 2.2 mg/dL (2.7-4.5); Sodium 135 mEq/L (136-145); Total Protein 5.9 g/dL (6.4-8.9); eGFR For African Americans > 60 (> 60); eGFR For Non-African Americans > 60 (> 60)
[2022-05-27] MEDS: Calcium Gluconate 1gm/50mL 1 GM/50 ML BAG IVPB SCH ×2 (03:08→04:06)
[2022-05-27] MEDS ORDERED: *HR* Metoprolol 5 MG/5 ML VIAL IVP ONE (03:43)
[2022-05-27] MEDS ORDERED: Iopamidol - 370 500 ML MLS IVP ONE (04:06)
[2022-05-27] MEDS: Ipratropium/Albuterol Neb 3 ML IH SCH ×6 (04:14→23:16)
[2022-05-27] MEDS: *HR* Enoxaparin 40 MG/0.4 ML SYRINGE SQ SCH (05:01)
[2022-05-27 06:23] LABS: Folate 10.1 ng/mL (3.0-16.0)
[2022-05-27 06:52] LABS: Ferritin 299 ng/mL (20-250); Iron < 10 mcg/dL (65-175); Transferrin 185 mg/dL (203-362)
[2022-05-27] MEDS ORDERED: miSOPROStoL 25 MCG TABLET PO SCH (09:00)
[2022-05-27] MEDS ORDERED: Aspirin Enteric Coated 81 MG Tablet PO SCH (09:00)
[2022-05-27] MEDS: Divalproex (12 HR) 500 MG TABLET PO SCH ×2 (09:31→20:29)
[2022-05-27] MEDS: lisinopriL 20 MG TABLET PO SCH (09:31)
[2022-05-27] MEDS: predniSONE 20 MG TABLET PO SCH (09:31)
[2022-05-27] MEDS: Gabapentin 100 MG CAPSULE PO SCH ×3 (09:31→20:33)
[2022-05-27] MEDS: cilostazoL 100 MG TABLET PO SCH ×2 (09:31→20:28)
[2022-05-27] MEDS: Chlorhexidine Rinse 15 ML MOUTHWASH MM SCH ×3 (09:32→21:13)
[2022-05-27] MEDS: Aspirin Enteric Coated 81 MG Tablet PO SCH (09:32)
[2022-05-27] MEDS: Lactobacillus 1 EACH CAP.SPRINK PO SCH ×2 (09:32→20:29)
[2022-05-27] MEDS: Metoprolol XL (24 HR) Succ 50 MG TAB.ER.24H PO SCH (09:32)
[2022-05-27] MEDS: Baclofen 10 MG TABLET PO SCH ×2 (09:32→20:29)
[2022-05-27] MEDS: Budesonide/Formoterol 160/4.5 1 PUFF INH IH SCH ×2 (11:06→20:24)
[2022-05-27] MEDS: Piperacillin/Tazobactam 3.375 GM in 0.9 % Sodium Chloride Mini Bag 100 ML IVPB SCH ×2 (11:11→15:52)
[2022-05-27] MEDS: Azithromycin 500 MG in 0.9 % Sodium Chloride 250 ML IVPB SCH (11:19)
[2022-05-27] MEDS ORDERED: E-Z-HD (BARIUM SULF) SUSPENSION PO ONE (14:49)
[2022-05-27] MEDS ORDERED: E-Z-PAQUE (BARIUM SULF) SUSP 1 BOTTLE PO ONE (14:49)
[2022-05-27] MEDS: Mirtazapine 15 MG TABLET PO SCH (20:29)
[2022-05-28] MEDS: Piperacillin/Tazobactam 3.375 GM in 0.9 % Sodium Chloride Mini Bag 100 ML IVPB SCH ×4 (00:46→22:48)
[2022-05-28 03:23] LABS: Hematocrit 28.4 % (37.5-50.1); Hemoglobin 9.4 g/dL (12.9-16.9); Mean Corpuscular HGB Conc 33.1 g/dL (31.6-35.5); Mean Corpuscular Hemoglobin 28.5 pg (28.0-33.3); Mean Corpuscular Volume 86.1 fL (83.0-100.0); Mean Platelet Volume 9.9 fL (9.4-12.4); Platelet Count 305 K/mcL (140-400); Red Cell Distribution Width 15.6 % (11.5-14.5)
[2022-05-28 03:36] LABS: BUN/Creatinine Ratio 18 (6-26); Blood Urea Nitrogen 12 mg/dL (8-23); Calcium 8.3 mg/dL (8.6-10.3); Carbon Dioxide 24 mEq/L (23-29); Chloride 105 mEq/L (98-107); Glucose 98 mg/dL (70-105); Osmolality,Calculated 282 (280-300); Potassium 4.1 mEq/L (3.5-5.1); Sodium 136 mEq/L (136-145); eGFR For African Americans > 60 (> 60); eGFR For Non-African Americans > 60 (> 60)
[2022-05-28] MEDS: Ipratropium/Albuterol Neb 3 ML IH SCH ×6 (03:42→23:08)
[2022-05-28] MEDS: *HR* Enoxaparin 40 MG/0.4 ML SYRINGE SQ SCH (04:41)
[2022-05-28] MEDS: Budesonide/Formoterol 160/4.5 1 PUFF INH IH SCH ×2 (07:23→19:49)
[2022-05-28] MEDS: Azithromycin 500 MG in 0.9 % Sodium Chloride 250 ML IVPB SCH (09:39)
[2022-05-28] MEDS: Metoprolol XL (24 HR) Succ 50 MG TAB.ER.24H PO SCH (09:40)
[2022-05-28] MEDS: lisinopriL 20 MG TABLET PO SCH (09:40)
[2022-05-28] MEDS: cilostazoL 100 MG TABLET PO SCH ×2 (09:40→22:49)
[2022-05-28] MEDS: Baclofen 10 MG TABLET PO SCH ×2 (09:40→22:49)
[2022-05-28] MEDS: Lactobacillus 1 EACH CAP.SPRINK PO SCH ×2 (09:41→22:51)
[2022-05-28] MEDS: Gabapentin 100 MG CAPSULE PO SCH ×3 (09:41→22:49)
[2022-05-28] MEDS: predniSONE 20 MG TABLET PO SCH (09:41)
[2022-05-28] MEDS: Aspirin Enteric Coated 81 MG Tablet PO SCH (09:41)
[2022-05-28] MEDS: Chlorhexidine Rinse 15 ML MOUTHWASH MM SCH ×2 (09:41→22:49)
[2022-05-28] MEDS: Divalproex (12 HR) 500 MG TABLET PO SCH ×2 (10:08→22:49)
[2022-05-28 15:47] LABS: Adenovirus Not Detected (Not Detect); Bordetella Pertussis Not Detected (Not Detect); Chlamydophila pneumoniae Not Detected (Not Detect); Coronavirus 229E Not Detected (Not Detect); Coronavirus HKU1 Not Detected (Not Detect); Coronavirus NL63 Not Detected (Not Detect); Coronavirus OC43 Not Detected (Not Detect); Human Metapneumovirus Not Detected (Not Detect); Human Rhinovirus/Enterovirus Not Detected (Not Detect); Influenza A Subtype 2009 H1 Not Detected (Not Detect); Influenza B Not Detected (Not Detect); Mycoplasma pneumoniae Not Detected (Not Detect); Parainfluenza Virus 1 Not Detected (Not Detect); Parainfluenza Virus 2 Not Detected (Not Detect); Parainfluenza Virus 3 Not Detected (Not Detect); Parainfluenza Virus 4 Not Detected (Not Detect); Respiratory Syncytial Virus Not Detected (Not Detect); SARS-CoV-2 Not Detected (Not Detect)
[2022-05-28] MEDS: Mirtazapine 15 MG TABLET PO SCH (22:49)
[2022-05-29] MEDS: Ipratropium/Albuterol Neb 3 ML IH SCH ×4 (04:30→15:29)
[2022-05-29] MEDS: *HR* Enoxaparin 40 MG/0.4 ML SYRINGE SQ SCH (05:36)
[2022-05-29] MEDS: Budesonide/Formoterol 160/4.5 1 PUFF INH IH SCH (07:24)
[2022-05-29] MEDS: Aspirin Enteric Coated 81 MG Tablet PO SCH (08:31)
[2022-05-29] MEDS: Baclofen 10 MG TABLET PO SCH (08:31)
[2022-05-29] MEDS: cilostazoL 100 MG TABLET PO SCH (08:31)
[2022-05-29] MEDS: Chlorhexidine Rinse 15 ML MOUTHWASH MM SCH (08:31)
[2022-05-29] MEDS: Divalproex (12 HR) 500 MG TABLET PO SCH (08:32)
[2022-05-29] MEDS: Metoprolol XL (24 HR) Succ 50 MG TAB.ER.24H PO SCH (08:32)
[2022-05-29] MEDS: lisinopriL 20 MG TABLET PO SCH (08:32)
[2022-05-29] MEDS: Lactobacillus 1 EACH CAP.SPRINK PO SCH (08:32)
[2022-05-29] MEDS: predniSONE 20 MG TABLET PO SCH (08:33)
[2022-05-29] MEDS: Gabapentin 100 MG CAPSULE PO SCH (08:33)
[2022-05-29] MEDS ORDERED: Azithromycin 200 MG/5 ML UDC PO SCH (09:00)
[2022-05-29] MEDS ORDERED: AZITHROMYCIN 40 MG/ML PO SCH (09:00)
[2022-05-29 11:52] VITALS: BP 162/89; PULSE 109; TEMP 98.5
[2022-05-29 15:31] VITALS: O2SAT 96
[2022-05-29] MEDS ORDERED: Amoxicillin/Clavulanate 400 MG/5 ML UDC PO SCH (18:00)
== END 2022-05-29 16:36 | DRG 871 ==
LOC: EMEROOARM 20:13 → 2ANU 20:13 → SUATTDRO 05-27 12:25
PROVIDERS: ADMIT Internal Medicine; ATTEND Internal Medicine

== ENCOUNTER 2022-06-19 12:30 | Inpatient (IN) ==
[2022-06-19] MEDS ORDERED: methylPREDNISolone 125 MG/2 ML VIAL IVP ONE (12:40)
[2022-06-19] MEDS ORDERED: Ipratropium/Albuterol Neb 3 ML IH ONE (12:40)
[2022-06-19 13:40] LABS: Influenza A PCR Negative (Negative); Influenza B PCR Negative (Negative); Resp. Syncytial Virus PCR Negative (Negative)
[2022-06-19 13:48] LABS: Basophils % 0.3 %; Eosinophils # 0.1 K/mcL (0.0-0.6); Eosinophils % 1.4 %; Hematocrit 39.7 % (37.5-50.1); Hemoglobin 13.4 g/dL (12.9-16.9); Immature Granulocytes % 0.3 % (0-4); Lymphocytes # 0.7 K/mcL (0.6-4.6); Lymphocytes % 19.4 %; Mean Corpuscular HGB Conc 33.8 g/dL (31.6-35.5); Mean Corpuscular Hemoglobin 28.9 pg (28.0-33.3); Mean Corpuscular Volume 85.7 fL (83.0-100.0); Mean Platelet Volume 9.6 fL (9.4-12.4); Monocytes # 0.3 K/mcL (0.0-1.3); Neutrophils # 2.5 K/mcL (1.6-8.9); Platelet Count 138 K/mcL (140-400); Red Blood Count 4.63 M/mcL (4.19-5.50); Red Cell Distribution Width 18.3 % (11.5-14.5); Segmented Neutrophils % 70.6 %; White Blood Count 3.5 K/mcL (4.3-11.1)
[2022-06-19 13:58] LABS: SARS-CoV-2 by PCR (In House) Positive (Negative)
[2022-06-19 14:01] LABS: Prothrombin Time 11.5 Seconds (9.4-12.1)
[2022-06-19 14:03] LABS: Activated Partial Thrombo Time 29.2 Seconds (26.0-36.0)
[2022-06-19 14:09] LABS: Alanine Aminotransferase 8 Units/L (7-52); Albumin 3.2 g/dL (3.5-5.7); Albumin/Globulin Ratio 1.1 (1.1-2.2); Alkaline Phosphatase 69 Units/L (34-104); Aspartate Amino Transferase 13 Units/L (13-39); BUN/Creatinine Ratio 10 (6-26); Bilirubin,Direct 0.1 mg/dL (0.0-0.2); Bilirubin,Indirect 0.3 mg/dL (0.0-1.0); Bilirubin,Total 0.4 mg/dL (0.3-1.0); Blood Urea Nitrogen 9 mg/dL (8-23); C-Reactive Protein 55 mg/L (Less than 10); Calcium 8.1 mg/dL (8.6-10.3); Carbon Dioxide 23 mEq/L (23-29); Chloride 92 mEq/L (98-107); Globulin 2.8 g/dL (2.4-3.5); Glucose 70 mg/dL (70-105); Lactate Dehydrogenase 158 Units/L (140-271); Magnesium 1.6 mg/dL (1.6-2.6); Osmolality,Calculated 251 (280-300); Phosphorous 2.7 mg/dL (2.7-4.5); Potassium 4.3 mEq/L (3.5-5.1); Sodium 122 mEq/L (136-145); Troponin I < 0.03 ng/mL (< 0.04)
[2022-06-19 14:11] LABS: Bilirubin,Urine Negative (Negative); Blood,Urine Moderate (Negative); Clarity,Urine Clear (Clear); Color,Urine Light-Yellow (Yellow); Glucose,Urine (UA) Normal (Normal); Ketones,Urine Negative (Negative); Leukocyte Esterase,Urine Negative (Negative); Nitrite,Urine Negative (Negative); PH,Urine 6.5 pH Units (5.0-8.0); Protein,Urine Negative (Neg-Trace); RBC,Urine 15-30 per hpf (0-3); Specific Gravity,Urine 1.012 (1.010-1.025); Squamous Epithelial Cell,Urine Few per hpf (None-Few); Transitional Epi Cells,Urine Few per hpf (None-Few)
[2022-06-19 14:27] LABS: Ferritin 551 ng/mL (20-250)
[2022-06-19] MEDS ORDERED: Acetaminophen 325 MG TABLET PO PRN (14:51)
[2022-06-19] MEDS ORDERED: Naloxone 0.4 MG/ML INJ IVP PRN (14:57)
[2022-06-19] MEDS ORDERED: Ondansetron 4 MG/2 ML VIAL IVP PRN (14:57)
[2022-06-19] MEDS ORDERED: Furosemide 40 MG/4 ML VIAL IVP ONE (15:27)
[2022-06-19] MEDS: Ipratropium 1 PUFF INHALER IH SCH ×3 (17:49→23:10)
[2022-06-19] MEDS: Budesonide/Formoterol 80/4.5 1 PUFF INH IH SCH (20:22)
[2022-06-19] MEDS: Mirtazapine 15 MG TABLET PO SCH (22:45)
[2022-06-19] MEDS: Gabapentin 100 MG CAPSULE PO SCH (22:45)
[2022-06-19] MEDS: Baclofen 10 MG TABLET PO SCH (22:45)
[2022-06-19] MEDS: Divalproex (12 HR) 500 MG TABLET PO SCH (22:45)
[2022-06-19] MEDS: cilostazoL 100 MG TABLET PO SCH (22:45)
[2022-06-20 01:39] LABS: Eosinophils % 0.5 %; Hematocrit 41.4 % (37.5-50.1); Immature Granulocytes % 0.9 % (0-4); Lymphocytes # 0.4 K/mcL (0.6-4.6); Lymphocytes % 17.5 %; Mean Corpuscular HGB Conc 33.8 g/dL (31.6-35.5); Mean Corpuscular Hemoglobin 28.6 pg (28.0-33.3); Mean Corpuscular Volume 84.7 fL (83.0-100.0); Mean Platelet Volume 9.9 fL (9.4-12.4); Monocytes # 0.1 K/mcL (0.0-1.3); Monocytes % 4.1 %; Neutrophils # 1.7 K/mcL (1.6-8.9); Platelet Count 165 K/mcL (140-400); Red Blood Count 4.89 M/mcL (4.19-5.50); Red Cell Distribution Width 18.4 % (11.5-14.5); White Blood Count 2.2 K/mcL (4.3-11.1)
[2022-06-20 01:58] LABS: Albumin 3.5 g/dL (3.5-5.7); Albumin/Globulin Ratio 1.1 (1.1-2.2); Bilirubin,Total 0.4 mg/dL (0.3-1.0); Calcium 8.4 mg/dL (8.6-10.3); Globulin 3.1 g/dL (2.4-3.5); Potassium 4.7 mEq/L (3.5-5.1); Total Protein 6.6 g/dL (6.4-8.9)
[2022-06-20 01:59] LABS: Anisocytosis 1+ (Not Present); Platelet Estimate Normal (Normal)
[2022-06-20] MEDS: Ipratropium 1 PUFF INHALER IH SCH ×6 (03:53→23:24)
[2022-06-20] MEDS: *HR* Enoxaparin 40 MG/0.4 ML SYRINGE SQ SCH (05:38)
[2022-06-20] MEDS: Divalproex (12 HR) 500 MG TABLET PO SCH ×2 (08:00→19:31)
[2022-06-20] MEDS: Baclofen 10 MG TABLET PO SCH ×2 (08:00→19:31)
[2022-06-20] MEDS: Aspirin Enteric Coated 81 MG Tablet PO SCH (08:00)
[2022-06-20] MEDS: Gabapentin 100 MG CAPSULE PO SCH ×3 (08:00→19:31)
[2022-06-20] MEDS: cilostazoL 100 MG TABLET PO SCH ×2 (08:00→19:31)
[2022-06-20] MEDS: Metoprolol XL (24 HR) Succ 50 MG TAB.ER.24H PO SCH (08:06)
[2022-06-20] MEDS: Budesonide/Formoterol 80/4.5 1 PUFF INH IH SCH ×2 (08:09→20:33)
[2022-06-20] MEDS ORDERED: NON-FORMULARY MEDICATION 1 EACH EACH (Tiotropium Bromide [Spiriva Handihaler] 18 MCG Cap.W IH SCH (09:00)
[2022-06-20] MEDS: Furosemide 40 MG/4 ML VIAL IVP SCH (12:02)
[2022-06-20] MEDS ORDERED: Albumin 25% 25gram/100mL 25 GM/100 ML IV.SOLN IVPB ONE (16:28)
[2022-06-20] MEDS: Mirtazapine 15 MG TABLET PO SCH (19:30)
[2022-06-21 02:54] LABS: Albumin 3.9 g/dL (3.5-5.7); Albumin/Globulin Ratio 1.5 (1.1-2.2); Bilirubin,Total 0.4 mg/dL (0.3-1.0); Calcium 8.6 mg/dL (8.6-10.3); Globulin 2.6 g/dL (2.4-3.5); Potassium 4.3 mEq/L (3.5-5.1); Total Protein 6.5 g/dL (6.4-8.9)
[2022-06-21 03:01] LABS: Basophils % 0.1 %; Immature Granulocytes % 0.4 % (0-4); Lymphocytes # 0.7 K/mcL (0.6-4.6); Lymphocytes % 10.8 %; Mean Corpuscular HGB Conc 34.2 g/dL (31.6-35.5); Mean Corpuscular Hemoglobin 28.5 pg (28.0-33.3); Mean Corpuscular Volume 83.5 fL (83.0-100.0); Mean Platelet Volume 9.8 fL (9.4-12.4); Monocytes # 0.4 K/mcL (0.0-1.3); Monocytes % 5.9 %; Neutrophils # 5.6 K/mcL (1.6-8.9); Platelet Count 217 K/mcL (140-400); Red Blood Count 4.31 M/mcL (4.19-5.50); Red Cell Distribution Width 17.7 % (11.5-14.5); Segmented Neutrophils % 82.8 %
[2022-06-21 03:14] LABS: Hemoglobin 12.3 g/dL (12.9-16.9); White Blood Count 6.7 K/mcL (4.3-11.1)
[2022-06-21] MEDS: Ipratropium 1 PUFF INHALER IH SCH ×5 (04:23→20:19)
[2022-06-21] MEDS: *HR* Enoxaparin 40 MG/0.4 ML SYRINGE SQ SCH (05:31)
[2022-06-21] MEDS: Budesonide/Formoterol 80/4.5 1 PUFF INH IH SCH ×2 (07:47→20:20)
[2022-06-21] MEDS: cilostazoL 100 MG TABLET PO SCH ×2 (11:28→23:55)
[2022-06-21] MEDS: Furosemide 40 MG/4 ML VIAL IVP SCH (11:28)
[2022-06-21] MEDS: Aspirin Enteric Coated 81 MG Tablet PO SCH (11:29)
[2022-06-21] MEDS: Divalproex (12 HR) 500 MG TABLET PO SCH ×2 (11:29→23:55)
[2022-06-21] MEDS: Metoprolol XL (24 HR) Succ 50 MG TAB.ER.24H PO SCH (11:29)
[2022-06-21] MEDS: Baclofen 10 MG TABLET PO SCH ×2 (11:29→23:55)
[2022-06-21] MEDS: Gabapentin 100 MG CAPSULE PO SCH ×3 (11:29→23:55)
[2022-06-21] MEDS: Mirtazapine 15 MG TABLET PO SCH (23:55)
[2022-06-22] MEDS: Ipratropium 1 PUFF INHALER IH SCH ×6 (00:13→19:45)
[2022-06-22 01:58] LABS: Basophils % 0.2 %; Eosinophils % 0.2 %; Hematocrit 37.6 % (37.5-50.1); Hemoglobin 12.9 g/dL (12.9-16.9); Immature Granulocytes % 0.8 % (0-4); Lymphocytes # 0.7 K/mcL (0.6-4.6); Lymphocytes % 10.8 %; Mean Corpuscular HGB Conc 34.3 g/dL (31.6-35.5); Mean Corpuscular Hemoglobin 28.7 pg (28.0-33.3); Mean Corpuscular Volume 83.7 fL (83.0-100.0); Mean Platelet Volume 9.7 fL (9.4-12.4); Monocytes # 0.5 K/mcL (0.0-1.3); Monocytes % 8.3 %; Platelet Count 227 K/mcL (140-400); Red Blood Count 4.49 M/mcL (4.19-5.50); Red Cell Distribution Width 18.3 % (11.5-14.5); Segmented Neutrophils % 79.7 %; White Blood Count 6.3 K/mcL (4.3-11.1)
[2022-06-22 02:18] LABS: Albumin 3.8 g/dL (3.5-5.7); Albumin/Globulin Ratio 1.4 (1.1-2.2); Bilirubin,Total 0.4 mg/dL (0.3-1.0); Calcium 8.8 mg/dL (8.6-10.3); Globulin 2.7 g/dL (2.4-3.5); Magnesium 1.7 mg/dL (1.6-2.6); Potassium 4.3 mEq/L (3.5-5.1); Total Protein 6.5 g/dL (6.4-8.9)
[2022-06-22] MEDS: *HR* Enoxaparin 40 MG/0.4 ML SYRINGE SQ SCH (06:51)
[2022-06-22] MEDS: Budesonide/Formoterol 80/4.5 1 PUFF INH IH SCH ×2 (08:37→19:45)
[2022-06-22] MEDS: Furosemide 40 MG/4 ML VIAL IVP SCH (09:41)
[2022-06-22] MEDS: Divalproex (12 HR) 500 MG TABLET PO SCH ×2 (09:42→21:53)
[2022-06-22] MEDS: cilostazoL 100 MG TABLET PO SCH ×2 (09:43→21:53)
[2022-06-22] MEDS: Gabapentin 100 MG CAPSULE PO SCH ×3 (09:43→21:53)
[2022-06-22] MEDS: Metoprolol XL (24 HR) Succ 50 MG TAB.ER.24H PO SCH (09:43)
[2022-06-22] MEDS: Baclofen 10 MG TABLET PO SCH ×2 (09:43→21:53)
[2022-06-22] MEDS: Aspirin Enteric Coated 81 MG Tablet PO SCH (09:44)
[2022-06-22 19:58] LABS: Basophils % 0.4 %; Hematocrit 40.9 % (37.5-50.1); Hemoglobin 13.8 g/dL (12.9-16.9); Immature Granulocytes % 0.5 % (0-4); Lymphocytes # 0.9 K/mcL (0.6-4.6); Lymphocytes % 11.2 %; Mean Corpuscular HGB Conc 33.7 g/dL (31.6-35.5); Mean Corpuscular Hemoglobin 28.6 pg (28.0-33.3); Mean Corpuscular Volume 84.7 fL (83.0-100.0); Mean Platelet Volume 9.9 fL (9.4-12.4); Monocytes # 0.6 K/mcL (0.0-1.3); Monocytes % 7.4 %; Neutrophils # 6.2 K/mcL (1.6-8.9); Platelet Count 243 K/mcL (140-400); Red Blood Count 4.83 M/mcL (4.19-5.50); Red Cell Distribution Width 18.5 % (11.5-14.5); Segmented Neutrophils % 80.5 %; White Blood Count 7.7 K/mcL (4.3-11.1)
[2022-06-22 20:18] LABS: Albumin 3.7 g/dL (3.5-5.7); Albumin/Globulin Ratio 1.3 (1.1-2.2); Bilirubin,Total 0.5 mg/dL (0.3-1.0); Calcium 9.1 mg/dL (8.6-10.3); Globulin 2.9 g/dL (2.4-3.5); Potassium 4.3 mEq/L (3.5-5.1); Total Protein 6.6 g/dL (6.4-8.9)
[2022-06-22] MEDS: Mirtazapine 15 MG TABLET PO SCH (21:52)
[2022-06-23] MEDS: Ipratropium 1 PUFF INHALER IH SCH ×7 (00:30→23:16)
[2022-06-23] MEDS ORDERED: *HR* Metoprolol 5 MG/5 ML VIAL IVP ONE ×2 (01:26→03:32)
[2022-06-23] MEDS ORDERED: Furosemide 20 MG/2 ML VIAL IVP ONE (01:54)
[2022-06-23 03:22] LABS: ABG Base Excess 1 mEq/L (-2 to 3); ABG HCO3 23 mEq/L (21-27); ABG Oxygen Saturation 100 % (95-98); ABG PCO2 28 mmHg (35-45); ABG PH 7.52 pH Units (7.32-7.45); ABG PO2 388 mmHg (85-104); ABG TCO2 24 mEq/L (20-26)
[2022-06-23] MEDS ORDERED: 0.9 % Sodium Chloride 1,000 ML IVC ONE ×3 (04:10→06:15)
[2022-06-23] MEDS ORDERED: DilTIAZem 50 MG/50 ML IV.SOLN IVC SCH (05:15)
[2022-06-23] MEDS ORDERED: 0.9 % Sodium Chloride 250 ML IVC ONE (05:21)
[2022-06-23] MEDS ORDERED: 0.9 % Sodium Chloride 1,000 ML ONE (05:38)
[2022-06-23] MEDS: *HR* Enoxaparin 40 MG/0.4 ML SYRINGE SQ SCH (06:03)
[2022-06-23 07:41] VITALS: BP 94/66; PULSE 138; TEMP 97.8
[2022-06-23] MEDS: Budesonide/Formoterol 80/4.5 1 PUFF INH IH SCH ×2 (07:47→19:43)
[2022-06-23 07:56] VITALS: O2SAT 86
[2022-06-23] MEDS ORDERED: *HR* Digoxin 0.5 MG/2 ML AMPUL IVP ONE (10:05)
[2022-06-23] MEDS ORDERED: Morphine Sulfate Oral CONC 10 MG/0.5 ML ORAL.SYG SL PRN (10:35)
[2022-06-23] MEDS ORDERED: Atropine Sulfate 1% 40 DROP/2 ML BOTTLE SL PRN (10:36)
[2022-06-23] MEDS ORDERED: *HR* LORazepam Oral Conc 2 MG/ML SL PRN (10:36)
[2022-06-23] MEDS ORDERED: Morphine Sulfate 2 MG/ML SYRINGE IVP PRN (10:37)
[2022-06-23] MEDS: Divalproex (12 HR) 500 MG TABLET PO SCH (10:45)
[2022-06-23] MEDS: Aspirin Enteric Coated 81 MG Tablet PO SCH (10:45)
[2022-06-23] MEDS: Baclofen 10 MG TABLET PO SCH (10:45)
[2022-06-23] MEDS: cilostazoL 100 MG TABLET PO SCH (10:45)
[2022-06-23] MEDS: Gabapentin 100 MG CAPSULE PO SCH (10:45)
[2022-06-23] MEDS: Furosemide 40 MG/4 ML VIAL IVP SCH (10:58)
[2022-06-23] MEDS: *HR* Digoxin 0.5 MG/2 ML AMPUL IVP SCH ×2 (17:48→23:16)
[2022-06-24] MEDS: Ipratropium 1 PUFF INHALER IH SCH (03:43)
[2022-06-24] MEDS ORDERED: Dexamethasone Sodium Phos/PF 10 MG/ML VIAL IVP SCH (09:00)
== END 2022-06-24 04:55 | disposition expired | DRG 177 ==
LOC: 3ANU 12:30 → EMEROOARM 12:30 → SUATTDRO 16:00 → 3ANU 17:24
PROVIDERS: ADMIT Internal Medicine; ATTEND Hospitalist